=== PATIENT | male | born 1995 ===

== ENCOUNTER 2022-10-18 08:53 | Outpatient (RCR) | payer MEDICARE, MEDICAID, SELFPAY | END 2022-11-20 13:43 | disposition home or self-care (01) | LOC: OT 08:53 | DX: I89.0 Lymphedema, not elsewhere classified (principal) | CPT/HCPCS: 97140; 97530 ==

== ENCOUNTER 2023-11-13 12:44 | Outpatient (RCR) | payer MEDICARE, MEDICAID, SELFPAY | END 2024-02-04 12:36 | disposition home or self-care (01) | LOC: OT 12:44 | PROVIDERS: PCP Student in an Organized Health Care Education/Training Program; Visit Provider Student in an Organized Health Care Education/Training Program | DX: I89.0 Lymphedema, not elsewhere classified (principal) | CPT/HCPCS: 97140; 97166; 97530; 97535 ==